=== PATIENT | female | born 1995 | race Caucasian/White ===

== ENCOUNTER 2018-04-16 19:55 | Emergency (ER) | payer BC ==
[2018-04-16] MEDS ORDERED: Ciprofloxacin 500 MG Tab PO ONE (19:56)
[2018-04-16 20:11] VITALS: BP 123/88
[2018-04-16] MEDS: Take Home: Ciprofloxacin 500 MG Tab, 2 Tab Pack PO ONE (20:26)
--- NOTE | 2018-04-16 20:26 | EDM.PDOC ---
ED HPI GENERAL MEDICAL PROBLEM - General Chief Complaint: Genitourinary Problem Stated Complaint: "I think I have a bladder infection" Time Seen by Provider: 04/16/18 20:16 - History of Present Illness INITIAL COMMENTS - FREE TEXT/NARRATIVE: Evelyn is a 22 year old female who presents to the ED with c/o urinary frequency, dysuria, and hematuria. She reports that last week she had feelings of a UTI, but came and and her UA was negative. She reports intermittently since then she has felt uncomfortable. She reports that all day today she felt kind of "weird" but this evening rather suddenly she has had worsening of frequency, urgency, and noticed blood in her urine. Denies any flank pain, fever , chills, N/V/D. Denies any other symptoms. Onset: Today, Sudden Duration: Constant Location: Reports: Pelvis - Related Data Allergies Allergy/AdvReac Type Severity Reaction Status Date / Time amoxicillin Allergy Rash Verified 04/16/18 20:04 Home Meds: Home Meds Levonorgestrel-Ethin Estradiol [Aviane-28 Tablet] 1 tab PO DAILY 12/07/14 [ History] Ciprofloxacin HCl [Cipro] 500 mg PO BID 5 Days #10 tablet 04/16/18 [Rx] Past Medical History - Past Health History Medical/Surgical History: Denies Medical/Surgical History Social & Family History - Tobacco Use Smoking Status *Q: Never Smoker ED ROS GENERAL - Review of Systems Review Of Systems: ROS reveals no pertinent complaints other than HPI. ED EXAM, RENAL/ - Physical Exam Exam: See Below Exam Limited By: No Limitations General Appearance: Alert, WD/WN, No Apparent Distress GI/Abdominal: Normal Bowel Sounds, Soft, Non-Tender, No Organomegaly, No Distention, No Abnormal Bruit, No Mass (Female) Exam: Normal External Exam, Normal Speculum Exam, Normal Bimanual Exam Back Exam: Normal Inspection, Full Range of Motion. No: CVA Tenderness (L), CVA Tenderness (R) Course - Vital Signs Last Recorded V/S: Last Vital Signs Temp 97.2 F 04/16/18 19:55 Pulse 78 04/16/18 19:55 Resp 16 04/16/18 19:55 BP 123/88 04/16/18 19:55 Pulse Ox 98 04/16/18 19:55 - Orders/Labs/Meds Orders: Active Orders 24 hr Category Date Time Status CULTURE URINE [RM] Stat Lab 04/16/18 20:08 Ordered UA W/MICROSCOPIC [URIN] Stat Lab 04/16/18 19:57 Ordered Labs: Laboratory Tests 04/16/18 Range/Units 19:57 Urine Color Yellow (YELLOW) Urine Appearance Cloudy (CLEAR) Urine pH 5.5 (4.5-8.0) Ur Specific [place] 1.025 H (1.003-1.020) Urine Protein 100 H (NEGATIVE) mg/dL Urine Glucose (UA) Negative (NEGATIVE) mg/dL Urine Ketones Trace H (NEGATIVE) mg/dL Urine Occult Blood Large H (NEGATIVE) Urine Nitrite Positive H (NEGATIVE) Urine Bilirubin Negative (NEGATIVE) Urine Urobilinogen 0.2 (0.2-1.0) EU/dL Ur Leukocyte Esterase Moderate H (NEGATIVE) Urine RBC 30-40 H (0-5) /HPF Urine WBC 50-75 H (0-5) /HPF Urine Bacteria Moderate H (NOT SEEN) /HPF Meds: Medications Discontinued Medications Generic Name Dose Route Start Last Admin Trade Name Krystin PRN Reason Stop Dose Admin Ciprofloxacin 2 packet 04/16/18 20:23 04/16/18 20:26 Take Home: Ciprofloxacin 500 Mg, 2 Tab Pack PO 04/16/18 20:24 2 packet ONETIME ONE Administration Departure - Departure Time of Disposition: 20:25 Disposition: Home, Self-Care 01 Condition: Good Clinical Impression: UTI, Urinary tract infectious disease - Discharge Information Prescriptions: Ciprofloxacin HCl [Cipro] 500 mg PO BID 5 Days #10 tablet Instructions: Urinary Tract Infection, Adult, [id number] Referrals: Provider,Unknown [Primary Care Provider] - Forms: ED Department Discharge Additional Instructions: Cipro twice daily x 7 days Push fluids AZO as needed for dysuria Follow up in clinic for recheck & scheduled Renal US - My Orders Last 24 Hours: My Active Orders 04/16/18 19:57 UA W/MICROSCOPIC [URIN] Stat 04/16/18 20:08 CULTURE URINE [RM] Stat - Assessment/Plan Last 24 Hours: My Active Orders 04/16/18 19:57 UA W/MICROSCOPIC [URIN] Stat 04/16/18 20:08 CULTURE URINE [RM] Stat
== END 2018-04-16 20:30 | disposition home or self-care (01) ==
LOC: CC.ED 19:55
DX: N39.0 Urinary tract infection, site not specified (principal); R31.9 Hematuria, unspecified; Z79.899 Other long term (current) drug therapy; Z88.1 Allergy status to other antibiotic agents
CPT/HCPCS: 81001; 87086; 87088; 87186; 99283; A9270-GY

== ENCOUNTER 2022-06-18 17:51 | Emergency (ER) | payer BC ==
[2022-06-18 17:53] VITALS: BP 138/99; PULSE 77
[2022-06-18] MEDS ORDERED: Take Home: Ketorolac 10 MG Tab, 4 Tab Pack PO ONE (18:13)
[2022-06-18] MEDS ORDERED: Ketorolac 30 MG/ML SDV IM ONE (18:13)
== END 2022-06-18 18:51 | disposition home or self-care (01) ==
LOC: CC.ED 17:51
DX: S93.402A Sprain of unspecified ligament of left ankle, initial encounter (principal); Z88.0 Allergy status to penicillin; X50.9XXA Other and unspecified overexertion or strenuous movements or postures, initial encounter
CPT/HCPCS: 73610-LT; 96372; 99283; A9270-GY; J1885